=== PATIENT | male | born 1955 | race Caucasian/White ===

== ENCOUNTER 2019-10-05 13:38 | Day surgery (SDC) | payer OTHER ==
[~2019-10-05 13:38] MED LIST: CEFAZOLIN SODIUM 2 GM in DEXTROSE 5%-WATER 100 ML IV PRN
[2019-10-05] MEDS ORDERED: ONDANSETRON HCL INJ/PF 4 MG/2 ML SDV ONE (15:46)
[2019-10-05] MEDS ORDERED: MIDAZOLAM 2 MG/2 ML INJ ONE (15:46)
[2019-10-05] MEDS ORDERED: FENTANYL CITRATE INJ/PF 100 MCG/2 ML AMPUL ONE (15:46)
[2019-10-05] MEDS ORDERED: PROPOFOL INJ 200 MG/20 ML VIAL IV ONE ×2 (15:46→17:32)
[2019-10-05] MEDS ORDERED: LIDOCAINE 1% INJ-PF (10 MG/ML) 30 ML SDV ONE (16:13)
[2019-10-05] MEDS ORDERED: FENTANYL CITRATE INJ/PF 100 MCG/2 ML AMPUL IV PRN ×3 (16:21)
[2019-10-05] MEDS ORDERED: MEPERIDINE HCL/PF INJ 25 MG/1 ML DISP.SYRIN IV PRN (16:21)
[2019-10-05] MEDS ORDERED: ONDANSETRON HCL INJ/PF 4 MG/2 ML SDV IV PRN (16:21)
[2019-10-05] MEDS ORDERED: MORPHINE SULFATE 10 MG/ML INJ IV PRN ×2 (16:21→17:47)
[2019-10-05] MEDS ORDERED: DIPHENHYDRAMINE HCL 50 MG/ML VIAL IV PRN (16:21)
[2019-10-05] MEDS ORDERED: PROMETHAZINE HCL INJ 25 MG/1 ML VIAL IV PRN ×2 (16:21)
[2019-10-05] MEDS ORDERED: LIDOCAINE 1% INJ-PF (10 MG/ML) 30 ML SDV INJ ONE ×2 (17:17)
[2019-10-05] MEDS ORDERED: HYDROCODONE/ACETAMINOPHEN 5-325 MG TABLET PO PRN (17:47)
--- NOTE | 2019-10-05 17:48 | Discharge Summary ---
Discharge Summary (SDC) - Discharge Final Diagnosis: Right carpal tunnel syndrome Date of Surgery: 10/05/19 Discharge Date: 10/05/19 Condition: Good Treatment or Instructions: Schedule Follow Up w/ Dr. Evelio Graff @ [facility] to be seen in 10-14 days or as scheduled [place]: [place]: [place]: May remove dressing on postop day #3, keep incision covered and dry. Ice and elevate May begin finger range of motion attempting to make full fist. Stool softener of choice when on pain medication. USE OF [id number] IBUPROFEN: Ibuprofen (Advil, Nuprin, Medipren, Motrin IB) is a medication for fever and pain control. In addition, it has anti- inflammatory effects which may be beneficial, especially in the treatment of injuries. It's best to take ibuprofen with food. Persons with ulcer disease or allergy to aspirin should notify their physician of this before taking ibuprofen. Ibuprofen can be given every four to six hours, for a total of four doses daily. Age Pain or fever dose Antiinflammatory dose 6-8 yr 200 mg (1 tab) 200 mg (1 tab) 9-11 yr 200 mg (1 tab) 200-400 mg (1-2 tab) 11-14 yr 200-400 mg (1-2 tab) 400 mg (2 tab) 15-adult 400 mg (2 tab) 600 mg (3 tab) ORAL NARCOTIC MEDICATION: You have been given a prescription for pain control. This medication is a narcotic. It's best taken with food, as nausea can result if taken on an empty stomach. Don't operate machinery or drive within six hours of taking this medication. Do not combine this medicine with alcohol, or with any medication which can cause sedation (such as cold tablets or sleeping pills) unless you get permission from the physician. Narcotics tend to cause constipation. If possible, drink plenty of fluids and eat a diet high in fiber and fruits. Please be aware that prescription narcotics also have the potential for abuse. People become addicted to these medications because of the general sense of wellbeing that they induce. This feeling along with a significant reduction in tension, anxiety, and aggression provides a stimulating seductive quality to these drugs. Once your pain is under control, we encourage you to discard your unused narcotics. Prescriptions: Hydrocodone/Acetaminophen [Melfa 5-325 mg Tablet] 1 tab PO Q6 PRN #10 tablet PRN Reason: Referrals: DOMINGO MICHAELS MD [Primary Care Provider] - Discharge Diet: As Tolerated Respiratory Treatments at Home: Deep Breathing/Coughing, Incentive Spirometer Discharge Activity: No Lifting Over 10 Pounds, No Lifting/Push/Pulling Report the Following to Your Physician Immediately: Unusual Bleeding, Redness, Swelling, Warmth, Increased Soreness
--- NOTE | 2019-10-05 17:49 | Operative Report ---
Operative Report DATE OF SURGERY: 10/05/19 PREOPERATIVE DIAGNOSIS: Severe right carpal tunnel syndrome POSTOPERATIVE DIAGNOSIS: Same OPERATION: Right endoscopic carpal tunnel release SURGEON: LINDA SPRAGUE ANESTHESIA: LMAC COMPLICATIONS: None ESTIMATED BLOOD LOSS: Minimal PROCEDURE: Indication for above procedure: 63-year-old male with numbness and tingling involving the right upper extremity patient had electrodiagnostic testing confirming severe carpal tunnel syndrome at that point we discussed treatment options decision was made to proceed with operative treatment. Procedure In Detail: Patient was seen and evaluated in the preoperative holding area. The RIGHT upper extremity was initialized and marked. Patient received Ancef IV for bacterial prophylaxis. Patient was taken back to the operative room where transferred operative table. Patient was then placed under MAC anesthesia. Once adequately anesthetized, a nonsterile tourniquet was placed on the upper extremity. A surgical team debriefing was performed ensuring all instrumentation was available, the surgical procedure was discussed with possible concerns reviewed. Skin was prepped with alcohol and 12cc of 1% lidocaine without epinephrine was injected locally and w/in carpal canal. The upper extremity was prepped with chlorhexidine and alcohol and draped in a sterile fashion. A timeout was done identifying correct patient, procedure and extremity everyone in attendance agree with this and verbalized no concerns.The extremity was then exsanguinated the tourniquet was inflated to 250 mmHg. A transverse skin incision was made just proximal to the wrist flexion crease ulnar to the palmaris longus. Blunt dissection was performed down to the palmaris longus tendon which was retracted radially. Deep to the palmaris longus tendon was the volar carpal ligament this was incised identifying the median nerve deep. With the use of a [place] elevator any soft tissue/synovium was freed from the undersurface of the transverse carpal ligament. The hook of hamate was identified ulnarly. The ConMed cannulas were then introduced beginning with #1 progressing to a #3 gently dilating the carpal canal. I then introduced the scope within the cannula, moderate amount of tenosynovitis was noted and elevated further, the transverse carpal ligament was identified ensuring the median nerve was not visualized within the cannula. I triangulated distally with a 25-gauge needle identifying the distal aspect of the transverse carpal ligament, to ensure protection of the superficial palmar arch. The arthroscopic knife was used to incise the transverse carpal ligament under direct visualization with the arthroscopic camera. Any excess transverse fibers that remained after the first past were carefully released with a repeat pass. The median nerve was then directly visualized radially without disruption. Once this was completed I placed the #3 dilator and assured I got complete release of the transverse carpal ligament without residual compression. The median nerve was directly visualized and free of any overlying compression. I then turned my attention to release of the volar antebrachial fascia proximally. Once again a [place] was used to open the wound and I proceeded with cannula #1 to #3. The arthroscope was introduced into the cannula and under direct visualization the volar antebrachial fascia was released. Once this was complete I copiusly irrigated the wound with normal saline. The skin incision was closed with 4-0 Monocryl subcutaneous and a running subcuticular 4-0 Monocryl. This was reinforced with Dermabond and Steri-Strips. Sterile, 4 x 4's and a Daniel bandage was placed loosely. Sponge counts, instrument counts and needle counts were correct. The was no intraoperative complications patient tolerated the procedure well and was stable to PACU.
[2019-10-05] MEDS ORDERED: HYDROCODONE/ACETAMINOPHEN 5-325 MG TABLET ONE (18:35)
[2019-10-05 19:44] VITALS: BP 134/85
== END 2019-10-05 19:30 | disposition home or self-care (01) ==
LOC: OROUT 13:38
PROVIDERS: ATTEND Orthopaedic Surgery
DX: G56.01 Carpal tunnel syndrome, right upper limb (principal); I10 Essential (primary) hypertension; F17.210 Nicotine dependence, cigarettes, uncomplicated; Z86.14 Personal history of Methicillin resistant Staphylococcus aureus infection; G47.33 Obstructive sleep apnea (adult) (pediatric); E66.9 Obesity, unspecified; Z68.35 Body mass index [BMI] 35.0-35.9, adult; Z79.899 Other long term (current) drug therapy
CPT/HCPCS: 01810; 29848; J2250; J0690; J3010; J3490; J2405; J7060; J2704; 1810

== ENCOUNTER 2020-07-05 09:51 | Inpatient (IN) | payer OTHER ==
[~2020-07-05 09:51] MED LIST changes: +CEFAZOLIN 2 GM/D5W RTU 2 GM/50 ML RTUPB IV ONE; +CEFAZOLIN 2 GM/D5W RTU 2 GM/50 ML RTUPB IV PRN; -CEFAZOLIN SODIUM 2 GM in DEXTROSE 5%-WATER 100 ML IV PRN; +LACTATED RINGERS 1000 ML IV PRN; +LIDOCAINE 0.5% INJ-PF (5 MG/ML) 50 ML SDV SUBCUT PRN
[2020-07-05] MEDS ORDERED: FENTANYL CITRATE INJ/PF 100 MCG/2 ML AMPUL ONE (10:00)
[2020-07-05] MEDS ORDERED: HYDROMORPHONE HCL INJ/PF 2 MG/ML AMPULE ONE (10:00)
[2020-07-05] MEDS ORDERED: MIDAZOLAM 2 MG/2 ML INJ ONE ×2 (10:01→19:58)
[2020-07-05] MEDS ORDERED: DEXAMETHASONE SOD PHOSPHATE INJ 4 MG/1 ML VIAL ONE (10:01)
[2020-07-05] MEDS ORDERED: HEPARIN SOD (PORCINE) 1,000 UNIT/ML 10 ML VIAL ONE (12:39)
[2020-07-05] MEDS ORDERED: BUPIVACAINE INJ/PF LIPOSOME/PF 266 MG/20 ML SDV ONE (12:39)
[2020-07-05] MEDS ORDERED: BUPIVACAINE HCL 0.5 % INJ/PF 30 ML SDV ONE (12:39)
[2020-07-05] MEDS ORDERED: BACITRACIN INJ 50,000 UNIT VIAL ONE (12:39)
[2020-07-05] MEDS ORDERED: MINERAL OIL (STERILE) 10 ML VIAL ONE (12:39)
[2020-07-05] MEDS ORDERED: PROPOFOL INJ 200 MG/20 ML VIAL IV ONE ×2 (13:10→17:15)
[2020-07-05] MEDS ORDERED: FENTANYL CITRATE INJ/PF 100 MCG/2 ML AMPUL IV PRN ×3 (14:44)
[2020-07-05] MEDS ORDERED: ONDANSETRON HCL INJ/PF 4 MG/2 ML SDV IV PRN ×2 (14:44→19:09)
[2020-07-05] MEDS ORDERED: MEPERIDINE HCL/PF INJ 25 MG/1 ML DISP.SYRIN IV PRN (14:44)
[2020-07-05] MEDS ORDERED: MORPHINE SULFATE 10 MG/ML INJ IV PRN (14:44)
[2020-07-05] MEDS ORDERED: DIPHENHYDRAMINE HCL 50 MG/ML VIAL IV PRN ×2 (14:44→19:09)
[2020-07-05] MEDS ORDERED: SUCCINYLCHOLINE CHLORIDE INJ 200 MG/10 ML VIAL ONE (15:01)
[2020-07-05] MEDS ORDERED: ROCURONIUM BROMIDE INJ 50 MG/5 ML VIAL IV ONE (15:01)
[2020-07-05] MEDS ORDERED: CEFAZOLIN INJ 1 GM VIAL ONE (17:38)
[2020-07-05] MEDS ORDERED: RINGERS SOLUTION,LACTATED 1,000 ML IV PRN (19:01)
[2020-07-05] MEDS ORDERED: ACETAMINOPHEN 650 MG SUPP.RECT PR PRN (19:09)
[2020-07-05] MEDS ORDERED: MAGNESIUM HYDROXIDE SUSP 30 ML UDCUP PO PRN (19:09)
[2020-07-05] MEDS ORDERED: DIPHENHYDRAMINE HCL 25 MG CAPSULE PO PRN (19:09)
[2020-07-05] MEDS ORDERED: PROMETHAZINE HCL 25 MG TABLET PO PRN (19:09)
[2020-07-05] MEDS ORDERED: PROMETHAZINE HCL INJ 25 MG/1 ML VIAL IM PRN (19:09)
--- NOTE | 2020-07-05 19:17 | Operative Report ---
Operative Report DATE OF SURGERY: 07/05/20 PREOPERATIVE DIAGNOSIS: L4-5 and L5-S1 spondylolisthesis. L4-5 and L5-S1 insta bility. L4-5 L5-S1 stenosis. L4-5 L5-S1 back pain. L4-5 L5-S1 radiculitis POSTOPERATIVE DIAGNOSIS: L4-5 and L5-S1 spondylolisthesis. L4-5 and L5-S1 instability. L4-5 L5-S1 stenosis. L4-5 L5-S1 back pain. L4-5 L5-S1 radiculitis. s/p L4-5 anterior lateral interbody fusion robotically assisted with interbody spacer at L4-5 L5-S1 posterior fusion and instrumentation ro botically assisted left iliac crest aspiration through a separate incision for bone marrow aspirate concentration to be used in interbody space. OPERATION: L4-5 anterior lateral interbody fusion robotically assisted with interbody spacer at L4-5 L5-S1 posterior fusion and instrumentation robotically assisted left iliac crest aspiration through a separate incision for bone marrow aspirate concentration to be used in interbody space. SURGEON: JORDEN NAVARRETE 1ST DIRECTOR OF ASSISTED LIVING: JOMAR RAMOS ANESTHESIA: GA ESTIMATED BLOOD LOSS: 500 cc patient is given back 275 cc of Cell Saver INTRAOPERATIVE FINDINGS: Medtronic Solera Voyager screws at L4 7.5 x 55 mm screws x2 at L5 6.5 x 50 mm screws on the left and 7.5 x 55 mm screws on the right S1 6.5 x 45 mm screws on the left and 7.5 x 45 mm screws on the right 65 mm roula on the left 60 mm roula on the right interbody spacer at L4 5 20 mm spinology to her body spacer as well as allograft calcium triphosphate and DBM bone PROCEDURE: Patient is brought into the operating room placed under general anesthesia received 2 g of Ancef within 1 hour of cut time which was repeated at 4 hours intraoperatively IV. After appropriate surgical timeout patient was placed in the prone position after having a López catheter placed preoperatively neuro monitoring leads were placed on the patient. Baseline cranial motor and SSEP testing was carried out. The C arm is calibrated and C-arm fluoroscopy is obtained in the lateral position of the L4-L5 and S1 levels. After that the left iliac crest is aspirated through a lateral posterior incision a total of 60 cc of bone marrow aspirate are obtained for concentration to be used with interbody spacer and allograft. Attention was paid to the right posterior superior iliac spine a small stab incision on the right side is carried out and a pin is screwed into the posterior superior iliac spine to be connected to the [employer] robot. After that the calibration of the robot was carried out then screws were positioned at L4 bilaterally and L5 bilaterally and S1 bilaterally. The attention is then paid to the L4-5 portal anterior laterally which is carried out using the robotic navigation the portal is placed on the right side and the cannulas introduced into the disc space along with stimulation of the tip of the cannula all the way down into the disc space to thresholds greater than 20 mA. After that under C- arm fluoroscopy a complete discectomy was performed and endplates are curetted to good bleeding bone the balloon was then inserted to verify good contact with the endplates and the appropriate size mesh spacer being 20 mm is filled with MTF bone as well as bone marrow aspirate concentrate as well as allograft and demineralized bone matrix placed anterior to the spacer and in the spacer found to have significant correction of the collapsed disc space height. New motor testing was then obtained found to be stable attention was then paid to the L5- S1 level where upon attempt to enter into the disc space it was noted to be completely calcified posteriorly and due to the fact that there was not much disc space remaining the determination was that we will not place in interbody space at that level. Upon positioning the rods into the [place] on the right side it was noted that the screws had shifted upon determining that the screws after positioning the rods C-arm fluoroscopy images showed evidence of lateral migration of the L4 and the L5 screw on the right side the screws and the rods were removed and cannulated screws were placed using a Jamshidi needle with stimulation to threshold greater than 7 mA and the rods were final tightened and contoured on the right side to good position. The final screws that were utilized on the right side were cannulated screws 7.5 x 55 mm screws at L4 and 7.5 x 55 mm screws at L5 and 7.5 x 45 mm screws at S1 please note that after removal of the previous screws we increase the diameter of the screws by 1 mm and we used cannulated screws [id number] system. On the left side it was noted that the 4 screw shifted upon placement or trying to reduce the rods to the screws so the screw was removed and Jamshidi needle was introduced into the vertebral body stimulated to thresholds greater than 30 mA and the 6.5 millimeter screw that was originally placed by 50 mm was exchanged for a 7.5 x 55 mm Solera cannulated screw and found to have good purchase after that the rods were utilized 65 mm roula on the left and 460 mm roula on the right and there was reduced without a problem and the hardware was intact with no migration of the screws upon reduction of the rods down to the [place]. Ideomotor testing was then obtained and found to be stable. C-arm fluoroscopy is obtained in AP and lateral position patient tolerated the procedure well estimated blood loss was 500 cc patient is given back 275 cc please note that this procedure could not have been done without the assistance of Johny Ramos and carrying out all the parts of this post surgical intervention including placement of the screws placement with interbody spacers aspiration of the iliac crest and stimulation of the screws. Patient is brought to the supine position extubated brought to recovery room condition stable.
--- NOTE | 2020-07-05 19:30 | RADIOLOGY REPORT (SQ) ---
EXAM DESCRIPTION: NO CHG FLUORO; L SPINE 2 VIEWS IMAGES COMPLETED DATE/TIME: 07/05/2020 7:08 pm REASON FOR STUDY: L4 - L5 FUSION M43.16 SPONDYLOLISTHESIS, LUMBAR REGION M48.061 SPINAL STENOSIS, LUMBAR REGION WITHOUT NEUROGENIC CL M51.16 INTERVERTEBRAL DISC DISORDERS W RADICULOPATHY, LUMBAR COMPARISON: None. FLUOROSCOPY TIME: 3.2 minutes 54 images saved to PACS. TECHNIQUE: Intra-operative images acquired during surgical procedure to evaluate progress. NUMBER OF IMAGES: 54 LIMITATIONS: None. FINDINGS: Placement of spine hardware. IMPRESSION: IMAGE(S) OBTAINED DURING PROCEDURE. COMMENT: Quality ID 145: Final reports for procedures using fluoroscopy that document radiation exp osure indices, or exposure time and number of fluorographic images (if radiation exposure indices are not available) Please consult full operative report of the attending physician for description of the procedure. TECHNICAL DOCUMENTATION: JOB ID: [id number] 2010 [employer]- All Rights Reserved Reading location - IP/workstation name: [email or web address]
--- NOTE | 2020-07-05 19:30 | RADIOLOGY REPORT (SQ) ---
EXAM DESCRIPTION: NO CHG FLUORO; L SPINE 2 VIEWS IMAGES COMPLETED DATE/TIME: 07/05/2020 7:08 pm REASON FOR STUDY: L4 - L5 FUSION M43.16 SPONDYLOLISTHESIS, LUMBAR REGION M48.061 SPINAL STENOSIS, LUMBAR REGION WITHOUT NEUROGENIC CL M51.16 INTERVERTEBRAL DISC DISORDERS W RADICULOPATHY, LUMBAR COMPARISON: None. FLUOROSCOPY TIME: 3.2 minutes 54 images saved to PACS. TECHNIQUE: Intra-operative images acquired during surgical procedure to evaluate progress. NUMBER OF IMAGES: 54 LIMITATIONS: None. FINDINGS: Placement of spine hardware. IMPRESSION: IMAGE(S) OBTAINED DURING PROCEDURE. COMMENT: Quality ID 145: Final reports for procedures using fluoroscopy that document radiation exp osure indices, or exposure time and number of fluorographic images (if radiation exposure indices are not available) Please consult full operative report of the attending physician for description of the procedure. TECHNICAL DOCUMENTATION: JOB ID: [id number] 2010 [employer]- All Rights Reserved Reading location - IP/workstation name: [email or web address]
[2020-07-05] MEDS ORDERED: IPRATROPIUM/ALBUTEROL 0.5-2.5 MG/3 ML AMPUL NEB ONE (19:41)
[2020-07-05] MEDS ORDERED: METHOCARBAMOL INJ/PF 1000 MG/10 ML SDV ONE (19:41)
[2020-07-05] MEDS ORDERED: ACETAMINOPHEN 1,000 MG/100 ML RTUPB IV ONE ×2 (19:48→20:30)
[2020-07-05] MEDS ORDERED: MIDAZOLAM 2 MG/2 ML INJ IV ONE (20:30)
[2020-07-05] MEDS: OXYCODONE HCL IR 5 MG TABLET PO PRN (21:44)
[2020-07-05] MEDS: METHOCARBAMOL 750 MG TABLET PO PRN (21:45)
[2020-07-05] MEDS: LOSARTAN POTASSIUM 50 MG TABLET PO SCH (21:45)
[2020-07-05] MEDS: CEFAZOLIN 2 GM/D5W RTU 2 GM/50 ML RTUPB IV SCH (21:47)
[2020-07-05] MEDS: GABAPENTIN 300 MG CAPSULE PO SCH (22:00)
[2020-07-05] MEDS: MORPHINE SULFATE 10 MG/ML INJ IV PRN (23:50)
[2020-07-06] MEDS: OXYCODONE HCL IR 5 MG TABLET PO PRN ×7 (02:07→22:55)
[2020-07-06] MEDS: MORPHINE SULFATE 10 MG/ML INJ IV PRN (03:54)
[2020-07-06] MEDS: ACETAMINOPHEN 325 MG TABLET PO PRN ×2 (06:03→18:38)
[2020-07-06] MEDS: CEFAZOLIN 2 GM/D5W RTU 2 GM/50 ML RTUPB IV SCH (06:08)
[2020-07-06 08:50] LABS: APPEARANCE,URINE CLEAR; BILIRUBIN,URINE NEGATIVE (NEGATIVE); COLOR,URINE YELLOW; GLUCOSE, URINE NEGATIVE (NEGATIVE); KETONES,URINE NEGATIVE (NEGATIVE); PROTEIN,URINE NEGATIVE (NEGATIVE); URINE SPECIFIC GRAVITY 1.021; UROBILINOGEN,URINE NEGATIVE mg/dL (<2.0)
[2020-07-06] MEDS: HYDROCHLOROTHIAZIDE 25 MG TABLET PO SCH (09:00)
[2020-07-06] MEDS: METHOCARBAMOL 750 MG TABLET PO PRN ×2 (09:00→17:02)
[2020-07-06 10:00] LABS: ABSOLUTE BASOPHILS # (AUTO) 0.1 10^3/uL (0.0-0.2); ABSOLUTE LYMPHOCYTES (AUTO) 1.4 10^3/uL (0.5-4.7); ABSOLUTE MONOCYTES (AUTO) 1.2 10^3/uL (0.1-1.4); ABSOLUTE NEUT (AUTO) 8.5 10^3/uL (1.7-8.2); BASOPHILS % (AUTO) 0.5 % (0-2); EOSINOPHILS % (AUTO) 0.3 % (0-6); HEMATOCRIT 32.4 % (37.9-51.0); HEMOGLOBIN 11.5 g/dL (13.5-17.0); LYMPHOCYTES % (AUTO) 12.8 % (13-45); MEAN CORPUSCULAR HEMOGLOBIN 34.4 pg (27.0-33.4); MEAN CORPUSCULAR HGB CONC 35.5 g/dL (32.0-36.0); MEAN CORPUSCULAR VOLUME 97 fl (80-97); PLATELET COUNT 149 10^3/uL (150-450); RED BLOOD COUNT 3.34 10^6/uL (4.35-5.55); RED CELL DISTRIBUTION WIDTH 12.7 % (11.5-14.0); SEGMENTED NEUTROPHILS % (AUTO) 75.4 % (42-78); TOTAL CELLS COUNTED % (AUTO) 100 %; WHITE BLOOD COUNT 11.2 10^3/uL (4.0-10.5)
[2020-07-06] MEDS ORDERED: (PENDING PHARMACY ID) (Losartan Potassium [Losartan Potassium] 100 MG Tablet) PO SCH (10:00)
[2020-07-06] MEDS: LOSARTAN POTASSIUM 50 MG TABLET PO SCH ×2 (10:55→22:33)
[2020-07-06] MEDS: ALPRAZOLAM 0.5 MG TABLET PO SCH ×2 (10:56→18:38)
[2020-07-06] MEDS: POLYETHYLENE GLYCOL 3350 POWDER 17 GM/1 PACKET PO SCH (10:56)
[2020-07-06] MEDS: GABAPENTIN 300 MG CAPSULE PO SCH ×2 (10:56→22:33)
[2020-07-06] MEDS: ALLOPURINOL 100 MG TABLET PO SCH (10:57)
[2020-07-06] MEDS: SENNOSIDES/DOCUSATE 8.6-50 MG 1 EACH TABLET PO SCH ×2 (10:57→18:39)
--- NOTE | 2020-07-06 12:08 | PDOC PROGRESS REPORT ---
Subjective Date:: 07/06/20 Subjective:: S/P lumbar fusion Reason For Visit: LUMBAR SPONDYLOLISTHESIS,BACK PAIN,LUMBAR Physical Exam Vital Signs: Temp Pulse Resp BP Pulse Ox 98.4 F 87 18 126/61 H 93 07/06/20 08:48 07/06/20 08:48 07/06/20 08:48 07/06/20 08:48 07/06/20 08:48 Intake & Output 07/05/20 07/06/20 07/07/20 06:59 06:59 06:59 Intake Total 3400 Output Total 1375 Balance 2024 Weight 113.4 kg General appearance: PRESENT: no acute distress, cooperative Eye exam: PRESENT: PERRLA Mouth exam: PRESENT: moist Extremities exam: ABSENT: calf tenderness, joint swelling Additional comments: Lumbar spine: Appropriate post-op swelling and tenderness is appreciated. dressing has been rienforced. calves are are soft and non-tender Neurological exam: PRESENT: alert, altered, awake Psychiatric exam: PRESENT: appropriate affect Results Laboratory Results: 07/06/20 08:50 07/05/20 10:25 07/06/20 07/06/20 08:20 08:50 WBC 11.2 H RBC 3.34 L Hgb 11.5 L Hct 32.4 L MCV 97 MCH 34.4 H MCHC 35.5 RDW 12.7 Plt Count 149 L Seg Neutrophils % 75.4 Urine Color YELLOW Urine Appearance CLEAR Urine pH 5.0 Ur Specific [place] 1.021 Urine Protein NEGATIVE Urine Glucose (UA) NEGATIVE Urine Ketones NEGATIVE Urine Blood NEGATIVE Urine RBC (Auto) 1 Impressions: Fluoroscopy 07/05/20 00:00 IMPRESSION: IMAGE(S) OBTAINED DURING PROCEDURE. Lumbar Spine X-Ray 07/05/20 00:00 IMPRESSION: IMAGE(S) OBTAINED DURING PROCEDURE. Assessment & Plan - Diagnosis (1) Fusion of lumbar spine Is this a current diagnosis for this admission?: Yes - Time Time Spent with patient: Less than 15 minutes - Plan Summary Plan Summary: patient is doing well s/p Lumbar fusion Will get CBC with diff progress with PT per protocol consider d/c tomorrow.
[2020-07-06] MEDS: DIAZEPAM 5 MG TABLET PO PRN (22:33)
[2020-07-07] MEDS: OXYCODONE HCL IR 5 MG TABLET PO PRN ×3 (02:10→08:28)
[2020-07-07] MEDS: METHOCARBAMOL 750 MG TABLET PO PRN (03:50)
[2020-07-07] MEDS: ACETAMINOPHEN 325 MG TABLET PO PRN (04:11)
[2020-07-07] MEDS ORDERED: BISACODYL 10 MG SUPP.RECT PR PRN (05:00)
[2020-07-07] MEDS ORDERED: BISACODYL 5 MG TABEC PO PRN (05:00)
[2020-07-07] MEDS ORDERED: INFLUENZA QUAD (6MOS+) 2020-21 VAC 0.5 ML SYR IM ONE (08:00)
[2020-07-07] MEDS: HYDROCHLOROTHIAZIDE 25 MG TABLET PO SCH (08:29)
--- NOTE | 2020-07-07 09:06 | PDOC DISCHARGE SUMMARY ---
General - Admit/Disc Date/PCP Admission Date/Primary Care Provider: 07/05/20 09:51 Discharge Date: 07/07/20 - Discharge Diagnosis Final Diagnosis: Status post L4-5 L5-S1 posterior fusion interbody fusion L4-5. - Assessment Summary: Patient is doing well status post L4-5 interbody fusion L4-5 and L5-S1 posterior fusion instrumentation. The patient had to have the robotically assisted screws revised because they pulled out due to the quality of the bone when we were placing the rods and so his surgery was extended and so where his incisions but he did well. - Additional Information Resuscitation Status: Full Code Discharge Diet: As Tolerated Discharge Activity: No Driving, No Lifting/Push/Pulling, Walk Frequently Referrals: JORDEN NAVARRETE MD [ASSOCIATE] - 07/18/20 1:45 pm Home Medications: Allopurinol [Zyloprim 100 mg Tablet] 100 mg PO DAILY 10/04/19 Alprazolam [Xanax] 0.5 mg PO BID 10/04/19 Gabapentin [Neurontin 300 mg Capsule] 300 mg PO TID 10/04/19 Hydrochlorothiazide [Hydrodiuril 25 mg Tablet] 25 mg PO QAM 10/04/19 Ibuprofen [Ibu] 800 mg PO DAILYP PRN 10/04/19 Losartan Potassium 100 mg PO BID 10/04/19 Citalopram Hydrobromide [Celexa 20 mg Tablet] 20 mg PO DAILY 07/06/20 Additional Information: Dressing was changed again today but there was no significant drainage as opposed to the first night where he had significant drainage. His labs are stable patient be discharged home to follow-up in 10 to 14 days patient is instructed to reinforce the dressing if there is drainage or come back to the office for dressing change but not to do it himself or his . History of Present Illiness History of Present Illness: MARIIA DOVER is a 64 year old male Physical Exam Vital Signs: Temp Pulse Resp BP Pulse Ox 98.4 F 80 18 128/56 H 95 07/06/20 23:17 07/06/20 23:17 07/06/20 23:17 07/06/20 23:17 07/06/20 23:17 Intake & Output 07/06/20 07/07/20 07/08/20 06:59 06:59 06:59 Intake Total 3450 2590 Output Total 1379 1500 Balance 2070 1090 Weight 113.4 kg 113.5 kg Results Laboratory Results: WBC 11.2 10^3/uL (4.0-10.5) H 07/06/20 08:50 RBC 3.34 10^6/uL (4.35-5.55) L 07/06/20 08:50 Hgb 11.5 g/dL (13.5-17.0) L 07/06/20 08:50 Hct 32.4 % (37.9-51.0) L 07/06/20 08:50 MCV 97 fl (80-97) 07/06/20 08:50 MCH 34.4 pg (27.0-33.4) H 07/06/20 08:50 MCHC 35.5 g/dL (32.0-36.0) 07/06/20 08:50 RDW 12.7 % (11.5-14.0) 07/06/20 08:50 Plt Count 149 10^3/uL (150-450) L 07/06/20 08:50 Lymph % (Auto) 12.8 % (13-45) L 07/06/20 08:50 Andrew % (Auto) 11.0 % (3-13) 07/06/20 08:50 Eos % (Auto) 0.3 % (0-6) 07/06/20 08:50 Baso % (Auto) 0.5 % (0-2) 07/06/20 08:50 Absolute Neuts (auto) 8.5 10^3/uL (1.7-8.2) H 07/06/20 08:50 Absolute Lymphs (auto) 1.4 10^3/uL (0.5-4.7) 07/06/20 08:50 Absolute Monos (auto) 1.2 10^3/uL (0.1-1.4) 07/06/20 08:50 Absolute Eos (auto) 0.0 10^3/uL (0.0-0.6) 07/06/20 08:50 Absolute Basos (auto) 0.1 10^3/uL (0.0-0.2) 07/06/20 08:50 Seg Neutrophils % 75.4 % (42-78) 07/06/20 08:50 Potassium 4.5 mmol/L (3.6-5.0) 07/05/20 10:25 Urine Color YELLOW 07/06/20 08:20 Urine Appearance CLEAR 07/06/20 08:20 Urine pH 5.0 (5.0-9.0) 07/06/20 08:20 Ur Specific [place] 1.021 07/06/20 08:20 Urine Protein NEGATIVE mg/dL (NEGATIVE) 07/06/20 08:20 Urine Glucose (UA) NEGATIVE mg/dL (NEGATIVE) 07/06/20 08:20 Urine Ketones NEGATIVE mg/dL (NEGATIVE) 07/06/20 08:20 Urine Blood NEGATIVE (NEGATIVE) 07/06/20 08:20 Urine Nitrite (Reflex) NEGATIVE (NEGATIVE) 07/06/20 08:20 Urine Bilirubin NEGATIVE (NEGATIVE) 07/06/20 08:20 Urine Urobilinogen NEGATIVE mg/dL (<2.0) 07/06/20 08:20 Leukocyte Esterase Rfl TRACE (NEGATIVE) H 07/06/20 08:20 Urine RBC (Auto) 1 /HPF 07/06/20 08:20 U Hyaline Cast (Auto) 1 /LPF 07/06/20 08:20 Urine WBC (Reflex) 2 /HPF 07/06/20 08:20 Urine Mucus (Auto) RARE /LPF 07/06/20 08:20 Urine Ascorbic Acid NEGATIVE (NEGATIVE) 07/06/20 08:20 COVID-19 Source See comment 06/30/20 11:29 COVID-19 (AP) Not Detected (Not Detect) 06/30/20 11:29 Blood Type A POSITIVE 07/05/20 10:25 Antibody Screen NEGATIVE 07/05/20 10:25 Impressions: Fluoroscopy 07/05/20 00:00 IMPRESSION: IMAGE(S) OBTAINED DURING PROCEDURE. Lumbar Spine X-Ray 07/05/20 00:00
[2020-07-07] MEDS: ALLOPURINOL 100 MG TABLET PO SCH (10:08)
[2020-07-07] MEDS: SENNOSIDES/DOCUSATE 8.6-50 MG 1 EACH TABLET PO SCH (10:09)
[2020-07-07] MEDS: LOSARTAN POTASSIUM 50 MG TABLET PO SCH (10:09)
[2020-07-07] MEDS: DIAZEPAM 5 MG TABLET PO PRN (10:09)
[2020-07-07] MEDS: GABAPENTIN 300 MG CAPSULE PO SCH (10:09)
[2020-07-07] MEDS: POLYETHYLENE GLYCOL 3350 POWDER 17 GM/1 PACKET PO SCH (10:10)
[2020-07-07] MEDS: ALPRAZOLAM 0.5 MG TABLET PO SCH (10:10)
[2020-07-07 10:43] VITALS: BP 156/85
== END 2020-07-07 10:55 | disposition home or self-care (01) | DRG 460 ==
LOC: INOR 09:51 → 4S 21:28
PROVIDERS: ADMIT Orthopaedic Surgery; ATTEND Orthopaedic Surgery
PROC: 0SG30AJ Fusion of Lumbosacral Joint with Interbody Fusion Device, Posterior Approach, Anterior Column, Open Approach (ICD-10-PCS; 2020-07-05)
PROC: 0ST20ZZ Resection of Lumbar Vertebral Disc, Open Approach (ICD-10-PCS; 2020-07-05)
PROC: 07DR3ZZ Extraction of Iliac Bone Marrow, Percutaneous Approach (ICD-10-PCS; 2020-07-05)
PROC: 0SG0070 Fusion of Lumbar Vertebral Joint with Autologous Tissue Substitute, Anterior Approach, Anterior Column, Open Approach (ICD-10-PCS; principal; 2020-07-05 12:00)
PROC: 3E02340 Introduction of Influenza Vaccine into Muscle, Percutaneous Approach (ICD-10-PCS; 2020-07-07)
DX: M43.06 Spondylolysis, lumbar region (principal); M43.07 Spondylolysis, lumbosacral region; Z20.828 Contact with and (suspected) exposure to other viral communicable diseases; I10 Essential (primary) hypertension; M51.17 Intervertebral disc disorders with radiculopathy, lumbosacral region; Z23 Encounter for immunization; Z79.899 Other long term (current) drug therapy; Z87.891 Personal history of nicotine dependence; Z86.14 Personal history of Methicillin resistant Staphylococcus aureus infection
CPT/HCPCS: 00630; 36415; 72100; 81001; 84132; 85025; 86850; 86900; 86901; 87086; 87635; 90471; 90686; 94760; 94799; C1713; C1758; C1781; C9290; C9803; G0008; J0131; J0330; J0690; J1100; J1170; J1644; J2250; J2270; J2704; J2800; J3010; J3490; J7120; Q9966